=== PATIENT | female | born 1940 | race Two or more races ===

== ENCOUNTER 2017-08-10 14:11 | Emergency (ER) | payer OTHER ==
[~2017-08-10] VITALS: Ht 160 cm; Wt 72.6 kg
[2017-08-10 14:39] VITALS: BP 179/85
== END 2017-08-10 15:09 | disposition home or self-care (01) ==
LOC: ER 14:13
DX: G47.00 Insomnia, unspecified (principal); E78.00 Pure hypercholesterolemia, unspecified; I10 Essential (primary) hypertension
CPT/HCPCS: 99283; A4606; Z7610